=== PATIENT | male | born 1995 | race Caucasian/White ===

== ENCOUNTER 2023-02-16 08:07 | Emergency (ER) | payer OTHER ==
[2023-02-16 08:13] VITALS: BMI 31.4
[2023-02-16 08:18] VITALS: BP 151/77; RESP 16; TEMP 98.4
[2023-02-16 08:36] VITALS: PULSE 108
== END 2023-02-16 08:51 | disposition home or self-care (01) ==
LOC: FER 08:07
DX: S39.012A Strain of muscle, fascia and tendon of lower back, initial encounter (principal); S80.01XA Contusion of right knee, initial encounter; Y04.0XXA Assault by unarmed brawl or fight, initial encounter
CPT/HCPCS: 99282-25

== ENCOUNTER 2023-09-04 04:04 | Emergency (ER) | payer OTHER ==
[2023-09-04 04:13] VITALS: BP 144/92; PULSE 103; RESP 16; BMI 31.4
== END 2023-09-04 05:33 | disposition home or self-care (01) ==
LOC: FER 04:04
DX: S63.101A Unspecified subluxation of right thumb, initial encounter (principal); M79.644 Pain in right finger(s); M79.89 Other specified soft tissue disorders; X50.0XXA Overexertion from strenuous movement or load, initial encounter; Y93.89 Activity, other specified
CPT/HCPCS: 73140-TC-RT-FY; 99283-25